=== PATIENT | male | born 1940 | race Hispanic/Latino ===

== ENCOUNTER 2022-05-06 00:12 | Inpatient (IN) | payer MEDICARE ==
[2022-05-06 00:35] LABS: Actual Bicarbonate (HCO3v) 33 mEq/L (22-28); Analyzer IN Cardio ER; Base Excess 5.8 mEq/L (-2.0 to +3.0); Calcium, Ionized (venous) 1.09 mmol/L (1.16-1.32); Chloride (VBG) 94 mmol/L (98-106); Hemoglobin (Hb) 15.8 g/dL (12.6-17.4); Potassium (VBG) 4.82 mmol/L (3.70-5.30); Sodium 132.7 mmol/L (133-146); pH (venous) 7.38 (7.32-7.43)
[2022-05-06 01:00] LABS: Mean Corpuscular HGB CONC 31.4 g/dL (32.0-36.0); Mean Corpuscular Hemoglobin 27.6 pg (27.0-31.0); RBC Distribution Width 17.3 % (11.5-14.5); Red Blood Cell (RBC) Count 5.42 mill/uL (4.70-6.10); White Blood Cell (WBC) Count 3.5 10x3/uL (4.8-10.8)
[2022-05-06 01:11] LABS: Bilirubin Negative (Negative); Blood, Urine 1+ (Negative); Clarity Clear (Clear); Glucose, Urine (Dipstick) Normal (Negative); Ketone, Urine Negative (Negative); Leukocyte 250 Leu/uL (Negative); Nitrite Negative (Negative); Protein, Urine (Dipstick) 70 mg/dL (Neg-Trace); Specific Gravity, Urine 1.016 (1.002-1.036); Squamous Epithelial 0-3 HPF (0-3); Urobilinogen 6 mg/dL (Less than 2); WBC/HPF 21-50 HPF (0-3); Yeast-Budding 4+ HPF (None Seen); pH, Urine 5.5 (5.0-9.0)
[2022-05-06 01:13] LABS: Bacteria/HPF 1+ HPF (None Seen)
[2022-05-06 01:21] LABS: Anion Gap 14 mmol/L (10-20); BUN (Urea Nitrogen) 21 mg/dL (8.4-25.7); Calc. Creatinine Clearance 0 mL/min (70-130); Carbon Dioxide 28 mmol/L (23-31); Chloride 96 mmol/L (98-107); Potassium 5.2 mmol/L (3.5-5.1); Sodium 133 mmol/L (136-145)
[2022-05-06 01:22] LABS: ALT (SGPT) 28 U/L (8-55); AST (SGOT) 36 U/L (5-34); Albumin 3.3 g/dL (3.4-4.8); Alkaline Phosphatase 143 U/L (40-110); Bilirubin, Total 1.3 mg/dL (0.2-1.2); Calcium 8.9 mg/dL (7.8-10.44); Estimated GFR 84; Globulin 4.5 g/dL (2.4-3.5); Glucose 115 mg/dL (83-110); Protein, Total 7.8 g/dL (5.8-8.1)
[2022-05-06 01:23] LABS: #Basophils 0.1 thou/uL (0.0-0.2); #Eosinphils 0.1 thou/uL (0.0-0.7); #Lymphocytes 0.8 thou/uL (1.20-3.40); #Monocytes 0.3 thou/uL (0.11-0.59); #Neutrophils 2.3 thou/uL (1.40-6.50); %Basophils 1.9 % (0.0-1.0); %Eosinophils 3.7 % (0.0-10.0); %Lymphocytes 22.1 % (21.0-51.0); %Monocytes 7.8 % (0.0-10.0); %Neutrophils 64.5 % (42.0-75.0); Anisocytosis SLIGHT = 6-15 cells (100X) (0-5/hpf); Large Platelets SLIGHT; MDiff Complete? YES; Platelet Count 113 10x3/uL (130-400); Platelet Morphology Comment Appears Decreased
[2022-05-06] MEDS ORDERED: Cefepime 2 GM VIAL ONE (01:28)
[2022-05-06 01:43] LABS: CKMB 2.8 ng/mL (0-6.6)
[2022-05-06] MEDS ORDERED: Furosemide 40 MG/4 ML VIAL ONE (02:32)
[2022-05-06 02:57] LABS: SARS-CoV-2 NAA Rapid Test Not Detected (NotDetected)
[2022-05-06] MEDS ORDERED: VANCOMYCIN 2 GRAM/500 ML BAG 2 GM in Premix Bag 1 BAG IVPB SCH (03:00)
[2022-05-06] MEDS ORDERED: Ondansetron PF 4 MG/2 ML Vial IVP PRN (03:41)
[2022-05-06] MEDS ORDERED: traZODone HCl 50 MG TAB PO PRN (04:23)
[2022-05-06] MEDS ORDERED: Melatonin 3 MG TAB PO PRN (04:23)
[2022-05-06] MEDS ORDERED: Benzonatate 100 MG CAP PO PRN (04:24)
[2022-05-06] MEDS ORDERED: Ampicillin 2 GM in Sodium Chloride 0.9% 100 ML IVPB SCH ×2 (05:00→11:00)
[2022-05-06] MEDS ORDERED: guaiFENesin ER 600 MG TAB PO SCH (05:00)
[2022-05-06] MEDS ORDERED: Ampicillin 2 GM VIAL ONE (05:05)
[2022-05-06] MEDS: Lidocaine 5% Patch TD SCH (05:15)
[2022-05-06 05:23] LABS: Troponin I 0.048 ng/mL (< 0.028)
[2022-05-06] MEDS ORDERED: Furosemide 20 MG/2 ML VIAL ONE (05:52)
[2022-05-06] MEDS: Furosemide 20 MG/2 ML VIAL SLOW IVP SCH ×2 (06:02→15:37)
[2022-05-06] MEDS ORDERED: Vancomycin HCl 1 GM in Sodium Chloride 0.9% 250 ML 300 ML IVPB SCH (09:00)
[2022-05-06 10:19] LABS: Legionella Urinary Ag Negative (Negative); Strep pneumo Urine Ag NEGATIVE (NEGATIVE)
[2022-05-06] MEDS: Cefepime 2 GM in Sodium Chloride 0.9% 100 ML IVPB SCH ×2 (10:32→17:10)
[2022-05-06 10:33] LABS: Anion Gap 14 mmol/L (10-20); BUN (Urea Nitrogen) 19 mg/dL (8.4-25.7); Calc. Creatinine Clearance 81 mL/min (70-130); Calcium 9.1 mg/dL (7.8-10.44); Carbon Dioxide 30 mmol/L (23-31); Chloride 95 mmol/L (98-107); Estimated GFR 81; Glucose 114 mg/dL (83-110); Potassium 4.5 mmol/L (3.5-5.1); Sodium 134 mmol/L (136-145)
[2022-05-06] MEDS: guaiFENesin ER 600 MG TAB PO SCH ×2 (10:34→21:28)
[2022-05-06] MEDS: Pantoprazole 40 MG VIAL IVP SCH (10:34)
[2022-05-06 10:38] LABS: Troponin I 0.052 ng/mL (< 0.028)
[2022-05-06] MEDS: Ampicillin 2 GM in Sodium Chloride 0.9% 100 ML IVPB SCH ×3 (15:37→21:28)
[2022-05-06] MEDS: Vancomycin 1.5 GRAM/300 ML BAG 1.5 GM in Premix Bag 1 BAG IVPB SCH (16:50)
[2022-05-06] MEDS ORDERED: FLU VACC QS2022-23(65YR UP)/PF 240 MCG/0.7 ML SYRINGE IM ONE (17:00)
[2022-05-06] MEDS: Transdermal Patch Removal TOP SCH (17:10)
[2022-05-07] MEDS: Ampicillin 2 GM in Sodium Chloride 0.9% 100 ML IVPB SCH ×6 (03:10→20:59)
[2022-05-07] MEDS: Cefepime 2 GM in Sodium Chloride 0.9% 100 ML IVPB SCH ×3 (03:21→16:57)
[2022-05-07] MEDS: Vancomycin 1.5 GRAM/300 ML BAG 1.5 GM in Premix Bag 1 BAG IVPB SCH (03:57)
[2022-05-07 05:58] LABS: #Basophils 0.1 thou/uL (0.0-0.2); #Eosinphils 0.1 thou/uL (0.0-0.7); #Lymphocytes 0.6 thou/uL (1.20-3.40); #Monocytes 0.3 thou/uL (0.11-0.59); #Neutrophils 2.4 thou/uL (1.40-6.50); %Basophils 1.8 % (0.0-1.0); %Eosinophils 1.6 % (0.0-10.0); %Lymphocytes 17.7 % (21.0-51.0); %Monocytes 8.4 % (0.0-10.0); %Neutrophils 70.7 % (42.0-75.0); Hemoglobin 14.9 g/dL (14.0-18.0); Mean Corpuscular HGB CONC 32.5 g/dL (32.0-36.0); Mean Corpuscular Hemoglobin 28.4 pg (27.0-31.0); Mean Corpuscular Volume 87.5 fl (78.0-98.0); Mean Platelet Volume 9.7 fL (7.4-10.4); Platelet Count 114 10x3/uL (130-400); RBC Distribution Width 16.9 % (11.5-14.5); Red Blood Cell (RBC) Count 5.26 mill/uL (4.70-6.10); White Blood Cell (WBC) Count 3.3 10x3/uL (4.8-10.8)
[2022-05-07 06:11] LABS: Hemoglobin A1c 6.8 % (4.0-6.0)
[2022-05-07 06:28] LABS: ALT (SGPT) 36 U/L (8-55); AST (SGOT) 42 U/L (5-34); Alkaline Phosphatase 136 U/L (40-110); Anion Gap 14 mmol/L (10-20); BUN (Urea Nitrogen) 19 mg/dL (8.4-25.7); Bilirubin, Total 1.7 mg/dL (0.2-1.2); CRP (Inflammatory) 1.42 mg/dL (= or < 0.5); Calc. Creatinine Clearance 91 mL/min (70-130); Calcium 9.2 mg/dL (7.8-10.44); Carbon Dioxide 29 mmol/L (23-31); Chloride 95 mmol/L (98-107); Estimated GFR 88; Globulin 4.5 g/dL (2.4-3.5); Glucose 108 mg/dL (83-110); Magnesium 1.9 mg/dL (1.6-2.6); Potassium 4.3 mmol/L (3.5-5.1); Protein, Total 7.5 g/dL (5.8-8.1); Sodium 134 mmol/L (136-145)
[2022-05-07] MEDS: Furosemide 20 MG/2 ML VIAL SLOW IVP SCH ×2 (06:42→14:40)
[2022-05-07] MEDS: Lidocaine 5% Patch TD SCH (06:42)
[2022-05-07] MEDS: guaiFENesin ER 600 MG TAB PO SCH ×2 (09:57→20:32)
[2022-05-07] MEDS: Pantoprazole 40 MG VIAL IVP SCH (10:03)
[2022-05-07 14:26] LABS: Vancomycin, Trough 29.4 ug/mL
[2022-05-07] MEDS ORDERED: VANCOMYCIN IVPB SCH (14:45)
[2022-05-07] MEDS: Transdermal Patch Removal TOP SCH (16:57)
[2022-05-07] MEDS: Acetaminophen 325 MG TAB PO PRN (16:59)
[2022-05-08] MEDS: Ampicillin 2 GM in Sodium Chloride 0.9% 100 ML IVPB SCH ×6 (01:10→20:55)
[2022-05-08] MEDS: Cefepime 2 GM in Sodium Chloride 0.9% 100 ML IVPB SCH ×3 (01:10→18:17)
[2022-05-08 02:16] LABS: #Basophils 0.1 thou/uL (0.0-0.2); #Eosinphils 0.1 thou/uL (0.0-0.7); #Lymphocytes 0.7 thou/uL (1.20-3.40); #Monocytes 0.4 thou/uL (0.11-0.59); #Neutrophils 2.5 thou/uL (1.40-6.50); %Eosinophils 2.3 % (0.0-10.0); %Lymphocytes 17.9 % (21.0-51.0); %Neutrophils 67.9 % (42.0-75.0); Hemoglobin 14.1 g/dL (14.0-18.0); Mean Corpuscular HGB CONC 31.6 g/dL (32.0-36.0); Mean Corpuscular Hemoglobin 27.4 pg (27.0-31.0); Mean Corpuscular Volume 86.8 fl (78.0-98.0); Mean Platelet Volume 11.2 fL (7.4-10.4); Platelet Count 108 10x3/uL (130-400); RBC Distribution Width 17.3 % (11.5-14.5); Red Blood Cell (RBC) Count 5.14 mill/uL (4.70-6.10); White Blood Cell (WBC) Count 3.7 10x3/uL (4.8-10.8)
[2022-05-08 02:29] LABS: Vancomycin, Random 21.6 ug/mL (See Comment)
[2022-05-08] MEDS: Furosemide 20 MG/2 ML VIAL SLOW IVP SCH ×2 (05:05→13:57)
[2022-05-08] MEDS: Lidocaine 5% Patch TD SCH (05:20)
[2022-05-08 06:55] LABS: Chloride 93 mmol/L (98-107); Potassium 4.1 mmol/L (3.5-5.1); Sodium 134 mmol/L (136-145)
[2022-05-08 06:56] LABS: Glucose 113 mg/dL (83-110)
[2022-05-08 06:58] LABS: Anion Gap 10 mmol/L (10-20); Carbon Dioxide 35 mmol/L (23-31)
[2022-05-08 07:00] LABS: BUN (Urea Nitrogen) 20 mg/dL (8.4-25.7); Calc. Creatinine Clearance 76 mL/min (70-130); Estimated GFR 79
[2022-05-08] MEDS: guaiFENesin ER 600 MG TAB PO SCH ×2 (07:36→20:42)
[2022-05-08] MEDS: Pantoprazole 40 MG VIAL IVP SCH (08:58)
[2022-05-08 14:18] LABS: Vancomycin, Random 16.5 ug/mL (See Comment)
[2022-05-08] MEDS ORDERED: Vancomycin 1.5 GRAM/300 ML BAG 1.5 GM in Premix Bag 1 BAG IVPB SCH (16:00)
[2022-05-08] MEDS: Transdermal Patch Removal TOP SCH (18:21)
[2022-05-08] MEDS ORDERED: clonazePAM 0.5 MG TAB PO PRN (19:55)
[2022-05-08] MEDS: Melatonin 3 MG TAB PO PRN (20:42)
[2022-05-09] MEDS: Cefepime 2 GM in Sodium Chloride 0.9% 100 ML IVPB SCH ×3 (01:05→17:22)
[2022-05-09] MEDS: Ampicillin 2 GM in Sodium Chloride 0.9% 100 ML IVPB SCH ×6 (01:05→20:58)
[2022-05-09 04:36] LABS: #Lymphocytes 0.7 thou/uL (1.20-3.40); #Monocytes 0.2 thou/uL (0.11-0.59); %Eosinophils 1.6 % (0.0-10.0); %Monocytes 8.2 % (0.0-10.0); %Neutrophils 67.2 % (42.0-75.0); Hemoglobin 14.1 g/dL (14.0-18.0); Mean Corpuscular HGB CONC 31.2 g/dL (32.0-36.0); Mean Corpuscular Hemoglobin 27.3 pg (27.0-31.0); Mean Corpuscular Volume 87.5 fl (78.0-98.0); Mean Platelet Volume 11.1 fL (7.4-10.4); Platelet Count 104 10x3/uL (130-400); RBC Distribution Width 17.5 % (11.5-14.5); Red Blood Cell (RBC) Count 5.16 mill/uL (4.70-6.10); White Blood Cell (WBC) Count 2.9 10x3/uL (4.8-10.8)
[2022-05-09] MEDS: Furosemide 20 MG/2 ML VIAL SLOW IVP SCH (05:41)
[2022-05-09] MEDS: Lidocaine 5% Patch TD SCH (05:41)
[2022-05-09 07:20] LABS: Chloride 93 mmol/L (98-107); Potassium 3.9 mmol/L (3.5-5.1); Sodium 133 mmol/L (136-145)
[2022-05-09 07:21] LABS: Glucose 129 mg/dL (83-110)
[2022-05-09 07:23] LABS: Carbon Dioxide 31 mmol/L (23-31)
[2022-05-09 07:24] LABS: Anion Gap 13 mmol/L (10-20)
[2022-05-09 07:25] LABS: Calc. Creatinine Clearance 81 mL/min (70-130); Estimated GFR 85
[2022-05-09 07:26] LABS: BUN (Urea Nitrogen) 21 mg/dL (8.4-25.7)
[2022-05-09] MEDS ORDERED: Furosemide 20 MG/2 ML VIAL SLOW IVP SCH (08:53)
[2022-05-09] MEDS ORDERED: Furosemide 40 MG/4 ML VIAL SLOW IVP SCH ×3 (09:00→14:00)
[2022-05-09] MEDS: Pantoprazole 40 MG VIAL IVP SCH (09:20)
[2022-05-09] MEDS: guaiFENesin ER 600 MG TAB PO SCH ×2 (09:20→20:58)
[2022-05-09] MEDS: DOPamine 400 MG/D5W 250 ML 250 ML IVPB SCH (11:35)
[2022-05-09] MEDS ORDERED: Sodium Chloride 0.65% Nasal 44 ML BOT EA NARE PRN (17:06)
[2022-05-09] MEDS: Transdermal Patch Removal TOP SCH (17:54)
[2022-05-10] MEDS: DOPamine 400 MG/D5W 250 ML 250 ML IVPB SCH ×2 (01:08→21:08)
[2022-05-10] MEDS: Cefepime 2 GM in Sodium Chloride 0.9% 100 ML IVPB SCH ×3 (01:08→17:21)
[2022-05-10] MEDS: Ampicillin 2 GM in Sodium Chloride 0.9% 100 ML IVPB SCH ×6 (01:08→21:08)
[2022-05-10] MEDS: Lidocaine 5% Patch TD SCH (06:27)
[2022-05-10 07:23] LABS: Anion Gap 14 mmol/L (10-20); BUN (Urea Nitrogen) 22 mg/dL (8.4-25.7); Calc. Creatinine Clearance 83 mL/min (70-130); Carbon Dioxide 31 mmol/L (23-31); Chloride 93 mmol/L (98-107); Estimated GFR 86; Glucose 145 mg/dL (83-110); Sodium 133 mmol/L (136-145)
[2022-05-10] MEDS: Pantoprazole 40 MG VIAL IVP SCH (09:09)
[2022-05-10] MEDS ORDERED: Furosemide 40 MG/4 ML VIAL SLOW IVP SCH (09:30)
[2022-05-10] MEDS: guaiFENesin ER 600 MG TAB PO SCH ×2 (09:53→21:09)
[2022-05-10] MEDS: Furosemide 40 MG/4 ML VIAL SLOW IVP SCH (16:36)
[2022-05-10] MEDS: Transdermal Patch Removal TOP SCH (17:29)
[2022-05-10] MEDS: Melatonin 3 MG TAB PO PRN (21:08)
[2022-05-10] MEDS: Acetaminophen 325 MG TAB PO PRN (22:19)
[2022-05-11] MEDS: Cefepime 2 GM in Sodium Chloride 0.9% 100 ML IVPB SCH ×3 (01:40→17:12)
[2022-05-11] MEDS: Ampicillin 2 GM in Sodium Chloride 0.9% 100 ML IVPB SCH ×6 (01:40→21:56)
[2022-05-11 04:35] LABS: #Basophils 0.1 thou/uL (0.0-0.2); #Eosinphils 0.1 thou/uL (0.0-0.7); #Lymphocytes 0.8 thou/uL (1.20-3.40); #Monocytes 0.4 thou/uL (0.11-0.59); #Neutrophils 1.7 thou/uL (1.40-6.50); %Basophils 1.8 % (0.0-1.0); %Eosinophils 3.4 % (0.0-10.0); %Monocytes 12.6 % (0.0-10.0); %Neutrophils 55.3 % (42.0-75.0); Hemoglobin 14.3 g/dL (14.0-18.0); Mean Corpuscular Hemoglobin 26.9 pg (27.0-31.0); Mean Corpuscular Volume 86.8 fl (78.0-98.0); Mean Platelet Volume 11.8 fL (7.4-10.4); Platelet Count 99 10x3/uL (130-400); RBC Distribution Width 17.9 % (11.5-14.5); Red Blood Cell (RBC) Count 5.31 mill/uL (4.70-6.10); White Blood Cell (WBC) Count 3.1 10x3/uL (4.8-10.8)
[2022-05-11] MEDS: Furosemide 40 MG/4 ML VIAL SLOW IVP SCH (05:44)
[2022-05-11] MEDS: Lidocaine 5% Patch TD SCH (05:44)
[2022-05-11 08:42] LABS: Anion Gap 17 mmol/L (10-20); BUN (Urea Nitrogen) 20 mg/dL (8.4-25.7); Calc. Creatinine Clearance 84 mL/min (70-130); Calcium 9.1 mg/dL (7.8-10.44); Carbon Dioxide 28 mmol/L (23-31); Chloride 91 mmol/L (98-107); Estimated GFR 87; Glucose 116 mg/dL (83-110); Magnesium 1.7 mg/dL (1.6-2.6); Potassium 3.6 mmol/L (3.5-5.1); Sodium 132 mmol/L (136-145)
[2022-05-11] MEDS: Pantoprazole 40 MG VIAL IVP SCH (09:36)
[2022-05-11] MEDS: guaiFENesin ER 600 MG TAB PO SCH ×2 (10:08→21:13)
[2022-05-11] MEDS: Bumetanide 1 MG/4 ML VIAL IVP SCH (14:19)
[2022-05-11] MEDS: Transdermal Patch Removal TOP SCH (17:13)
[2022-05-11] MEDS: Melatonin 3 MG TAB PO PRN (21:12)
[2022-05-11] MEDS: DOPamine 400 MG/D5W 250 ML 250 ML IVPB SCH (21:55)
[2022-05-12] MEDS: Ampicillin 2 GM in Sodium Chloride 0.9% 100 ML IVPB SCH ×6 (01:38→20:58)
[2022-05-12] MEDS: Cefepime 2 GM in Sodium Chloride 0.9% 100 ML IVPB SCH ×3 (01:38→17:16)
[2022-05-12 04:18] LABS: #Eosinphils 0.1 thou/uL (0.0-0.7); #Lymphocytes 0.8 thou/uL (1.20-3.40); #Monocytes 0.4 thou/uL (0.11-0.59); #Neutrophils 1.5 thou/uL (1.40-6.50); %Basophils 1.3 % (0.0-1.0); %Eosinophils 4.9 % (0.0-10.0); %Lymphocytes 26.6 % (21.0-51.0); %Monocytes 13.3 % (0.0-10.0); %Neutrophils 53.9 % (42.0-75.0); Mean Corpuscular HGB CONC 30.3 g/dL (32.0-36.0); Mean Corpuscular Hemoglobin 26.5 pg (27.0-31.0); Mean Corpuscular Volume 87.5 fl (78.0-98.0); Mean Platelet Volume 11.6 fL (7.4-10.4); Platelet Count 84 10x3/uL (130-400); RBC Distribution Width 17.4 % (11.5-14.5); Red Blood Cell (RBC) Count 5.29 mill/uL (4.70-6.10); White Blood Cell (WBC) Count 2.8 10x3/uL (4.8-10.8)
[2022-05-12 04:39] LABS: BUN (Urea Nitrogen) 19 mg/dL (8.4-25.7); Calc. Creatinine Clearance 82 mL/min (70-130); Calcium 9.2 mg/dL (7.8-10.44); Estimated GFR 86; Glucose 131 mg/dL (83-110); Magnesium 1.7 mg/dL (1.6-2.6)
[2022-05-12 04:48] LABS: Anion Gap 12 mmol/L (10-20); Carbon Dioxide 39 mmol/L (23-31); Chloride 86 mmol/L (98-107); Potassium 3.3 mmol/L (3.5-5.1); Sodium 134 mmol/L (136-145)
[2022-05-12] MEDS: Bumetanide 1 MG/4 ML VIAL IVP SCH ×2 (05:49→14:41)
[2022-05-12] MEDS: Lidocaine 5% Patch TD SCH (06:01)
[2022-05-12] MEDS: guaiFENesin ER 600 MG TAB PO SCH ×2 (10:02→20:44)
[2022-05-12] MEDS: Pantoprazole 40 MG VIAL IVP SCH (10:03)
[2022-05-12] MEDS ORDERED: Magnesium 2 GM/50 ML(in water) 2 GM in Premix Bag 1 BAG IVPB SCH (13:30)
[2022-05-12] MEDS: Potassium Chloride 20 MEQ TAB PO SCH ×2 (14:40→17:15)
[2022-05-12] MEDS: Transdermal Patch Removal TOP SCH (21:09)
[2022-05-13 05:37] LABS: #Eosinphils 0.2 thou/uL (0.0-0.7); #Lymphocytes 0.9 thou/uL (1.20-3.40); #Monocytes 0.4 thou/uL (0.11-0.59); #Neutrophils 1.9 thou/uL (1.40-6.50); %Basophils 0.9 % (0.0-1.0); %Eosinophils 6.3 % (0.0-10.0); %Lymphocytes 26.6 % (21.0-51.0); %Monocytes 10.7 % (0.0-10.0); %Neutrophils 55.6 % (42.0-75.0); Hemoglobin 14.8 g/dL (14.0-18.0); Mean Corpuscular HGB CONC 30.4 g/dL (32.0-36.0); Mean Corpuscular Volume 88.7 fl (78.0-98.0); Mean Platelet Volume 10.9 fL (7.4-10.4); Platelet Count 95 10x3/uL (130-400); RBC Distribution Width 17.5 % (11.5-14.5); Red Blood Cell (RBC) Count 5.49 mill/uL (4.70-6.10); White Blood Cell (WBC) Count 3.4 10x3/uL (4.8-10.8)
[2022-05-13 05:58] LABS: BUN (Urea Nitrogen) 20 mg/dL (8.4-25.7); Calc. Creatinine Clearance 79 mL/min (70-130); Calcium 9.5 mg/dL (7.8-10.44); Estimated GFR 87; Glucose 112 mg/dL (83-110); Magnesium 2.1 mg/dL (1.6-2.6)
[2022-05-13 06:09] LABS: Anion Gap 12 mmol/L (10-20); Carbon Dioxide 42 mmol/L (23-31); Chloride 84 mmol/L (98-107); Potassium 3.7 mmol/L (3.5-5.1); Sodium 134 mmol/L (136-145)
[2022-05-13] MEDS: Lidocaine 5% Patch TD SCH (06:26)
[2022-05-13] MEDS: Bumetanide 1 MG/4 ML VIAL IVP SCH ×2 (06:26→13:49)
[2022-05-13] MEDS: DOPamine 400 MG/D5W 250 ML 250 ML IVPB SCH ×2 (06:26→11:51)
[2022-05-13] MEDS: Artificial Tear Sol 15 ML BOT EA EYE PRN ×2 (08:51→22:21)
[2022-05-13] MEDS: Pantoprazole 40 MG VIAL IVP SCH (08:54)
[2022-05-13] MEDS: guaiFENesin ER 600 MG TAB PO SCH ×2 (08:54→22:14)
[2022-05-13] MEDS ORDERED: Apixaban 5 MG TAB PO SCH (10:15)
[2022-05-13] MEDS ORDERED: Potassium Chloride 20 MEQ TAB PO SCH (10:15)
[2022-05-13] MEDS: Transdermal Patch Removal TOP SCH (17:27)
[2022-05-13] MEDS: Apixaban 5 MG TAB PO SCH (22:14)
[2022-05-13] MEDS ORDERED: Melatonin 3 MG TAB PO PRN (23:48)
[2022-05-14] MEDS: Melatonin 3 MG TAB PO PRN ×2 (00:04→21:08)
[2022-05-14] MEDS: Artificial Tear Sol 15 ML BOT EA EYE PRN ×2 (04:04→21:27)
[2022-05-14 04:51] LABS: #Basophils 0.1 thou/uL (0.0-0.2); #Eosinphils 0.2 thou/uL (0.0-0.7); #Lymphocytes 0.9 thou/uL (1.20-3.40); #Monocytes 0.4 thou/uL (0.11-0.59); #Neutrophils 2.2 thou/uL (1.40-6.50); %Basophils 1.5 % (0.0-1.0); %Eosinophils 5.5 % (0.0-10.0); %Monocytes 10.8 % (0.0-10.0); %Neutrophils 59.2 % (42.0-75.0); Hemoglobin 15.1 g/dL (14.0-18.0); Mean Corpuscular HGB CONC 31.3 g/dL (32.0-36.0); Mean Corpuscular Hemoglobin 27.3 pg (27.0-31.0); Mean Corpuscular Volume 87.2 fl (78.0-98.0); Mean Platelet Volume 6.8 fL (7.4-10.4); Platelet Count 92 10x3/uL (130-400); RBC Distribution Width 17.7 % (11.5-14.5); Red Blood Cell (RBC) Count 5.53 mill/uL (4.70-6.10); White Blood Cell (WBC) Count 3.7 10x3/uL (4.8-10.8)
[2022-05-14 05:14] LABS: BUN (Urea Nitrogen) 20 mg/dL (8.4-25.7); Calc. Creatinine Clearance 64 mL/min (70-130); Calcium 9.7 mg/dL (7.8-10.44); Estimated GFR 80; Glucose 109 mg/dL (83-110); Magnesium 1.9 mg/dL (1.6-2.6)
[2022-05-14 05:24] LABS: Anion Gap 17 mmol/L (10-20); Carbon Dioxide 34 mmol/L (23-31); Chloride 84 mmol/L (98-107); Potassium 3.6 mmol/L (3.5-5.1); Sodium 131 mmol/L (136-145)
[2022-05-14] MEDS: Lidocaine 5% Patch TD SCH (05:56)
[2022-05-14] MEDS: Bumetanide 1 MG/4 ML VIAL IVP SCH ×2 (05:56→14:33)
[2022-05-14] MEDS ORDERED: Potassium Chloride 20 MEQ TAB PO SCH (09:00)
[2022-05-14] MEDS ORDERED: Magnesium 2 GM/50 ML(in water) 2 GM in Premix Bag 1 BAG IVPB SCH (09:00)
[2022-05-14] MEDS ORDERED: Furosemide 40 MG TAB PO SCH ×2 (09:00)
[2022-05-14] MEDS: Apixaban 5 MG TAB PO SCH ×2 (09:32→21:08)
[2022-05-14] MEDS: guaiFENesin ER 600 MG TAB PO SCH ×2 (09:33→21:08)
[2022-05-14] MEDS: Pantoprazole 40 MG VIAL IVP SCH (09:33)
[2022-05-14] MEDS: Tobramycin/dex OPTH 2.5 ML BOT EA EYE SCH ×2 (14:29→21:00)
[2022-05-14 15:20] VITALS: BMI 25.3
[2022-05-14] MEDS: Transdermal Patch Removal TOP SCH (21:00)
[2022-05-15] MEDS: Tobramycin/dex OPTH 2.5 ML BOT EA EYE SCH ×6 (02:02→17:48)
[2022-05-15 05:21] LABS: #Basophils 0.1 thou/uL (0.0-0.2); #Eosinphils 0.4 thou/uL (0.0-0.7); #Monocytes 0.4 thou/uL (0.11-0.59); #Neutrophils 1.8 thou/uL (1.40-6.50); %Basophils 1.3 % (0.0-1.0); %Eosinophils 9.9 % (0.0-10.0); %Lymphocytes 27.6 % (21.0-51.0); %Monocytes 11.9 % (0.0-10.0); %Neutrophils 49.2 % (42.0-75.0); Hemoglobin 14.8 g/dL (14.0-18.0); Mean Corpuscular HGB CONC 32.2 g/dL (32.0-36.0); Mean Corpuscular Hemoglobin 27.7 pg (27.0-31.0); Mean Platelet Volume 11.1 fL (7.4-10.4); Platelet Count 108 10x3/uL (130-400); RBC Distribution Width 17.6 % (11.5-14.5); Red Blood Cell (RBC) Count 5.35 mill/uL (4.70-6.10); White Blood Cell (WBC) Count 3.7 10x3/uL (4.8-10.8)
[2022-05-15] MEDS: Bumetanide 1 MG/4 ML VIAL IVP SCH (05:35)
[2022-05-15] MEDS: Lidocaine 5% Patch TD SCH (05:35)
[2022-05-15 05:37] LABS: Anion Gap 11 mmol/L (10-20); BUN (Urea Nitrogen) 23 mg/dL (8.4-25.7); Calc. Creatinine Clearance 61 mL/min (70-130); Calcium 9.6 mg/dL (7.8-10.44); Carbon Dioxide 37 mmol/L (23-31); Chloride 85 mmol/L (98-107); Estimated GFR 75; Glucose 99 mg/dL (83-110); Magnesium 2.2 mg/dL (1.6-2.6); Potassium 3.8 mmol/L (3.5-5.1); Sodium 129 mmol/L (136-145)
[2022-05-15] MEDS ORDERED: Furosemide 40 MG TAB PO SCH (07:30)
[2022-05-15] MEDS: Apixaban 5 MG TAB PO SCH (08:34)
[2022-05-15] MEDS: guaiFENesin ER 600 MG TAB PO SCH (08:34)
[2022-05-15] MEDS: Pantoprazole 40 MG VIAL IVP SCH (08:35)
[2022-05-15] MEDS ORDERED: Potassium Chloride 20 MEQ TAB PO SCH (10:45)
[2022-05-15 16:38] VITALS: BP 96/50; TEMP 97.8
[2022-05-15] MEDS: Transdermal Patch Removal TOP SCH (18:48)
== END 2022-05-15 19:00 | DRG 177 ==
LOC: ERS 00:12 → SUATTDRO 00:12 → ERHOLD 03:06 → IMCU/EMU 07:52 → 2NO 05-12 18:01
PROVIDERS: ADMIT Family Medicine; ATTEND Internal Medicine
PROC: 0T2BX0Z Change Drainage Device in Bladder, External Approach (ICD-10-PCS; principal; 2022-05-06)
PROC: 0CJS8ZZ Inspection of Larynx, Via Natural or Artificial Opening Endoscopic (ICD-10-PCS; 2022-05-09)
PROC: 5A09457 Assistance with Respiratory Ventilation, 24-96 Consecutive Hours, Continuous Positive Airway Pressure (ICD-10-PCS; 2022-05-09)
DX: J69.0 Pneumonitis due to inhalation of food and vomit (principal); G93.41 Metabolic encephalopathy; I50.33 Acute on chronic diastolic (congestive) heart failure; J96.21 Acute and chronic respiratory failure with hypoxia; T83.518A Infection and inflammatory reaction due to other urinary catheter, initial encounter; I48.20 Chronic atrial fibrillation, unspecified; R78.81 Bacteremia; N39.0 Urinary tract infection, site not specified; I31.39 Other pericardial effusion (noninflammatory); Z51.5 Encounter for palliative care; N32.0 Bladder-neck obstruction; E87.5 Hyperkalemia; D69.6 Thrombocytopenia, unspecified; B95.2 Enterococcus as the cause of diseases classified elsewhere; I87.8 Other specified disorders of veins; R29.6 Repeated falls; R00.1 Bradycardia, unspecified; Y84.6 Urinary catheterization as the cause of abnormal reaction of the patient, or of later complication, without mention of misadventure at the time of the procedure; R13.10 Dysphagia, unspecified; I35.0 Nonrheumatic aortic (valve) stenosis; Z90.49 Acquired absence of other specified parts of digestive tract; Z79.899 Other long term (current) drug therapy; Z79.4 Long term (current) use of insulin; Z79.01 Long term (current) use of anticoagulants; Z98.890 Other specified postprocedural states; Z91.199 Patient's noncompliance with other medical treatment and regimen due to unspecified reason
CPT/HCPCS: 36415; 36416; 71045; 80048; 80053; 80202; 81003; 81015; 82553; 82805; 83036; 83605; 83735; 83880; 84145; 84443; 84484; 85025; 85652; 86140; 87040; 87086; 87449; 87811; 87899; 93005; 93306; 94660; 94760; 96365; 96367; 96375; 97139; C9113; J0290; J0692; J1265; J1650; J1940; J2405; J3370; J3475; J3490

== ENCOUNTER 2022-06-20 11:14 | Outpatient (CLI) | payer MEDICARE, OTHER ==
[~2022-06-20 11:14] MED LIST: Iopamidol 370 76% 100 ML VIAL ONE
== END 2022-06-20 11:15 | disposition home or self-care (01) ==
LOC: CT 11:14
PROVIDERS: ATTEND Family Medicine
DX: R10.11 Right upper quadrant pain (principal); K76.0 Fatty (change of) liver, not elsewhere classified; K56.609 Unspecified intestinal obstruction, unspecified as to partial versus complete obstruction; K52.89 Other specified noninfective gastroenteritis and colitis; N32.89 Other specified disorders of bladder
CPT/HCPCS: 36415; 74178; 80053; 85025; Q9967

== ENCOUNTER 2022-06-20 12:58 | Inpatient (IN) | payer MEDICARE ==
[~2022-06-20 12:58] MED LIST changes: -Iopamidol 370 76% 100 ML VIAL ONE; +MD-Gastroview 120 ML BOT ONE
[2022-06-20 14:55] LABS: #Lymphocytes 0.9 thou/uL (1.20-3.40); #Monocytes 0.6 thou/uL (0.11-0.59); %Basophils 0.4 % (0.0-1.0); %Eosinophils 0.5 % (0.0-10.0); %Lymphocytes 13.5 % (21.0-51.0); %Monocytes 8.7 % (0.0-10.0); %Neutrophils 76.9 % (42.0-75.0); Mean Corpuscular HGB CONC 32.4 g/dL (32.0-36.0); Mean Corpuscular Volume 86.5 fl (78.0-98.0); Mean Platelet Volume 10.9 fL (7.4-10.4); Platelet Count 114 10x3/uL (130-400); RBC Distribution Width 16.9 % (11.5-14.5); Red Blood Cell (RBC) Count 5.35 mill/uL (4.70-6.10); White Blood Cell (WBC) Count 6.4 10x3/uL (4.8-10.8)
[2022-06-20 15:17] LABS: ALT (SGPT) 22 U/L (8-55); AST (SGOT) 28 U/L (5-34); Albumin 4.1 g/dL (3.4-4.8); Alkaline Phosphatase 119 U/L (40-110); Anion Gap 16 mmol/L (10-20); BUN (Urea Nitrogen) 22 mg/dL (8.4-25.7); Bilirubin, Total 1.3 mg/dL (0.2-1.2); Calc. Creatinine Clearance 0 mL/min (70-130); Calcium 10.3 mg/dL (7.8-10.44); Carbon Dioxide 26 mmol/L (23-31); Chloride 90 mmol/L (98-107); Estimated GFR 76; Globulin 4.6 g/dL (2.4-3.5); Glucose 131 mg/dL (83-110); Potassium 4.1 mmol/L (3.5-5.1); Protein, Total 8.7 g/dL (5.8-8.1); Sodium 128 mmol/L (136-145)
[2022-06-20] MEDS ORDERED: Ondansetron PF 4 MG/2 ML Vial ONE ×2 (15:26→15:27)
[2022-06-20] MEDS ORDERED: Morphine 4 MG/ML VIAL ONE (15:27)
[2022-06-20 16:13] LABS: Lipase 10 U/L (8-78)
[2022-06-20] MEDS ORDERED: Sodium Chloride 0.9% 1,000 ML IV SCH ×2 (17:30→18:30)
[2022-06-20] MEDS ORDERED: Piperacillin/Tazobactam 3.375 GM in Sodium Chloride 0.9% 100 ML IVPB SCH (19:15)
[2022-06-20 19:59] VITALS: BMI 25.7
[2022-06-20] MEDS ORDERED: Morphine 2 MG/ML VIAL SLOW IVP SCH (20:00)
[2022-06-20] MEDS: Famotidine/PF 20 mg/2ml Vial SLOW IVP SCH (20:08)
[2022-06-20] MEDS: Ondansetron PF 4 MG/2 ML Vial IVP PRN (20:08)
[2022-06-20] MEDS ORDERED: Pantoprazole 40 MG VIAL IVP SCH (22:45)
[2022-06-20] MEDS: Piperacillin/Tazobactam 3.375 GM in Sodium Chloride 0.9% 100 ML IVPB SCH (23:05)
[2022-06-20] MEDS: Heparin 5,000 UNITS/ML VIAL SC SCH (23:06)
[2022-06-21] MEDS ORDERED: Morphine 2 MG/ML VIAL SLOW IVP SCH (04:15)
[2022-06-21] MEDS: Ondansetron PF 4 MG/2 ML Vial IVP PRN (04:22)
[2022-06-21] MEDS: Piperacillin/Tazobactam 3.375 GM in Sodium Chloride 0.9% 100 ML IVPB SCH (05:59)
[2022-06-21 06:57] LABS: #Lymphocytes 0.5 thou/uL (1.20-3.40); #Monocytes 0.6 thou/uL (0.11-0.59); #Neutrophils 2.8 thou/uL (1.40-6.50); %Basophils 0.7 % (0.0-1.0); %Eosinophils 0.8 % (0.0-10.0); %Lymphocytes 13.3 % (21.0-51.0); %Monocytes 13.8 % (0.0-10.0); %Neutrophils 71.4 % (42.0-75.0); Hemoglobin 14.1 g/dL (14.0-18.0); Mean Corpuscular HGB CONC 30.2 g/dL (32.0-36.0); Mean Corpuscular Hemoglobin 26.5 pg (27.0-31.0); Mean Corpuscular Volume 87.6 fl (78.0-98.0); Mean Platelet Volume 10.5 fL (7.4-10.4); Platelet Count 112 10x3/uL (130-400); RBC Distribution Width 16.8 % (11.5-14.5); Red Blood Cell (RBC) Count 5.32 mill/uL (4.70-6.10)
[2022-06-21 07:11] LABS: Lactic Acid 0.9 mmol/L (0.5-2.2)
[2022-06-21 07:17] LABS: ALT (SGPT) 24 U/L (8-55); AST (SGOT) 26 U/L (5-34); Albumin 3.4 g/dL (3.4-4.8); Alkaline Phosphatase 94 U/L (40-110); Anion Gap 14 mmol/L (10-20); BUN (Urea Nitrogen) 27 mg/dL (8.4-25.7); Bilirubin, Total 1.4 mg/dL (0.2-1.2); Calc. Creatinine Clearance 46 mL/min (70-130); Calcium 9.6 mg/dL (7.8-10.44); Carbon Dioxide 29 mmol/L (23-31); Chloride 94 mmol/L (98-107); Estimated GFR 53; Globulin 3.9 g/dL (2.4-3.5); Glucose 119 mg/dL (83-110); Magnesium 2.2 mg/dL (1.6-2.6); Phosphorus 5.5 mg/dL (2.3-4.7); Protein, Total 7.3 g/dL (5.8-8.1); Sodium 133 mmol/L (136-145)
[2022-06-21] MEDS ORDERED: Sodium Chloride 0.9% 500 ML IV SCH (08:00)
[2022-06-21] MEDS: Famotidine/PF 20 mg/2ml Vial SLOW IVP SCH ×2 (08:59→20:57)
[2022-06-21] MEDS: Heparin 5,000 UNITS/ML VIAL SC SCH ×3 (08:59→20:55)
[2022-06-21] MEDS: Pantoprazole 40 MG VIAL IVP SCH ×2 (09:00→20:55)
[2022-06-21] MEDS ORDERED: Sodium Chloride 0.9% 1,000 ML IV SCH (09:00)
[2022-06-21 13:43] LABS: Bilirubin Negative (Negative); Blood, Urine 3+ (Negative); Clarity Turbid (Clear); Glucose, Urine (Dipstick) Normal (Negative); Ketone, Urine Negative (Negative); Leukocyte 25 Leu/uL (Negative); Nitrite Negative (Negative); Protein, Urine (Dipstick) 70 mg/dL (Neg-Trace); Specific Gravity, Urine 1.037 (1.002-1.036); Squamous Epithelial 0-3 HPF (0-3); Urobilinogen Normal mg/dL (Less than 2); Yeast-Budding 2+ HPF (None Seen)
[2022-06-21 13:48] LABS: Bacteria/HPF 1+ HPF (None Seen)
[2022-06-21 15:21] LABS: Anion Gap 13 mmol/L (10-20); BUN (Urea Nitrogen) 29 mg/dL (8.4-25.7); Calc. Creatinine Clearance 46 mL/min (70-130); Carbon Dioxide 28 mmol/L (23-31); Chloride 98 mmol/L (98-107); Estimated GFR 53; Glucose 94 mg/dL (83-110); Potassium 3.9 mmol/L (3.5-5.1); Sodium 135 mmol/L (136-145)
[2022-06-21] MEDS: Acetaminophen 500 MG TAB PO SCH ×2 (17:17→21:06)
[2022-06-21] MEDS ORDERED: Lidocaine 4% Patch TD SCH (22:15)
[2022-06-22] MEDS: Acetaminophen 500 MG TAB PO SCH ×4 (04:10→20:56)
[2022-06-22] MEDS: Famotidine/PF 20 mg/2ml Vial SLOW IVP SCH ×2 (09:54→20:56)
[2022-06-22] MEDS: Pantoprazole 40 MG VIAL IVP SCH ×2 (09:55→20:56)
[2022-06-22] MEDS ORDERED: Transdermal Patch Removal TOP SCH (10:15)
[2022-06-22] MEDS: Heparin 5,000 UNITS/ML VIAL SC SCH ×3 (12:46→20:56)
[2022-06-22] MEDS ORDERED: Sodium Chloride 0.65% Nasal 44 ML BOT EA NARE PRN (15:19)
[2022-06-22] MEDS ORDERED: Artificial Tear Sol 15 ML BOT EA EYE PRN (15:19)
[2022-06-22] MEDS ORDERED: Lidocaine 4% Patch TD SCH (22:00)
[2022-06-22] MEDS ORDERED: Cepastat Lozenges 1 LOZ PO PRN (23:44)
[2022-06-22] MEDS ORDERED: Phenol 118 ML BOT PO PRN (23:51)
[2022-06-23] MEDS: Acetaminophen 500 MG TAB PO SCH ×3 (02:37→16:20)
[2022-06-23 08:00] LABS: Anion Gap 10 mmol/L (10-20); BUN (Urea Nitrogen) 22 mg/dL (8.4-25.7); Calc. Creatinine Clearance 52 mL/min (70-130); Calcium 8.8 mg/dL (7.8-10.44); Carbon Dioxide 29 mmol/L (23-31); Chloride 98 mmol/L (98-107); Estimated GFR 60; Glucose 195 mg/dL (83-110); Potassium 3.6 mmol/L (3.5-5.1); Sodium 133 mmol/L (136-145)
[2022-06-23 08:02] LABS: Hemoglobin 13.4 g/dL (14.0-18.0); Mean Corpuscular HGB CONC 30.1 g/dL (32.0-36.0); Mean Corpuscular Hemoglobin 26.8 pg (27.0-31.0); Mean Corpuscular Volume 88.9 fl (78.0-98.0); RBC Distribution Width 16.4 % (11.5-14.5); Red Blood Cell (RBC) Count 4.99 mill/uL (4.70-6.10)
[2022-06-23] MEDS: Famotidine/PF 20 mg/2ml Vial SLOW IVP SCH (08:26)
[2022-06-23] MEDS: Pantoprazole 40 MG VIAL IVP SCH (08:26)
[2022-06-23] MEDS: Heparin 5,000 UNITS/ML VIAL SC SCH ×2 (08:27→16:20)
[2022-06-23] MEDS ORDERED: Furosemide 40 MG TAB PO SCH (09:00)
[2022-06-23 09:43] LABS: #Eosinphils 0.2 thou/uL (0.0-0.7); #Lymphocytes 1.1 thou/uL (1.20-3.40); #Monocytes 0.3 thou/uL (0.11-0.59); #Neutrophils 1.8 thou/uL (1.40-6.50); %Basophils 0.5 % (0.0-1.0); %Eosinophils 5.5 % (0.0-10.0); %Lymphocytes 33.1 % (21.0-51.0); %Neutrophils 51.9 % (42.0-75.0); Mean Platelet Volume 10.7 fL (7.4-10.4); Platelet Count 90 10x3/uL (130-400); Platelet Morphology Comment Appears Decreased; White Blood Cell (WBC) Count 3.4 10x3/uL (4.8-10.8)
[2022-06-23] MEDS ORDERED: Transdermal Patch Removal TOP SCH (10:00)
[2022-06-23 15:55] VITALS: BP 142/68; TEMP 97.1
== END 2022-06-23 15:44 | disposition home or self-care (01) | DRG 389 ==
LOC: ERS 12:58 → T4-B 17:40
PROVIDERS: ADMIT Internal Medicine Nephrology; ATTEND Internal Medicine
PROC: 0D9770Z Drainage of Stomach, Pylorus with Drainage Device, Via Natural or Artificial Opening (ICD-10-PCS; principal; 2022-06-20)
DX: K56.50 Intestinal adhesions [bands], unspecified as to partial versus complete obstruction (principal); E87.1 Hypo-osmolality and hyponatremia; I50.32 Chronic diastolic (congestive) heart failure; N17.9 Acute kidney failure, unspecified; I48.91 Unspecified atrial fibrillation; K52.89 Other specified noninfective gastroenteritis and colitis; E16.2 Hypoglycemia, unspecified; I87.2 Venous insufficiency (chronic) (peripheral); K56.7 Ileus, unspecified; N18.2 Chronic kidney disease, stage 2 (mild); Z79.899 Other long term (current) drug therapy
CPT/HCPCS: 36415; 74018; 74178; 74250; 80048; 80053; 81001; 83605; 83690; 83735; 84100; 85025; 86850; 86900; 86901; 94760; 96374; 96375; C9113; J1644; J2270; J2272; J2405; J2543; J3490; J7030; J7050; Q9963; S0028

== ENCOUNTER 2023-04-12 15:59 | Inpatient (IN) | payer MEDICARE ==
[~2023-04-12 15:59] MED LIST changes: +Iopamidol-370 76% 500 ML MDV (1 ML CHARGE) ONE; -MD-Gastroview 120 ML BOT ONE
[2023-04-12] MEDS ORDERED: Acetaminophen 500 MG TAB ONE (16:28)
[2023-04-12] MEDS ORDERED: Sodium Chloride 0.9% 0 ML ONE (16:28)
[2023-04-12] MEDS ORDERED: Cefepime 2 GM VIAL ONE ×2 (16:28→17:10)
[2023-04-12] MEDS ORDERED: Sodium Chloride 0.9% 100 ML ONE ×2 (16:29→17:10)
[2023-04-12 16:43] LABS: Bacteria/HPF 2+ HPF (None Seen); Bilirubin Negative (Negative); Blood, Urine 3+ (Negative); CAUTI Indications for Culture Dysuria,urgency,freq; Clarity Turbid (Clear); Glucose, Urine (Dipstick) Normal (Negative); Ketone, Urine Negative (Negative); Leukocyte 500 Leu/uL (Negative); Nitrite Negative (Negative); Protein, Urine (Dipstick) 100 mg/dL (Neg-Trace); RBC/HPF Greater than 50 HPF (0-3); Specific Gravity, Urine 1.016 (1.002-1.036); Squamous Epithelial None Seen HPF (0-3); Urobilinogen Normal mg/dL (Less than 2); WBC/HPF Greater than 50 HPF (0-3)
[2023-04-12 16:45] LABS: Urine Culture Reflex Yes Yes
[2023-04-12 17:02] LABS: #Eosinphils 0.1 thou/uL (0.0-0.7); #Monocytes 0.4 thou/uL (0.11-0.59); #Neutrophils 3.4 thou/uL (1.40-6.50); %Basophils 0.7 % (0.0-1.0); %Eosinophils 2.1 % (0.0-10.0); %Lymphocytes 7.8 % (21.0-51.0); %Monocytes 8.7 % (0.0-10.0); %Neutrophils 80.5 % (42.0-75.0); Hematocrit 42.3 % (42.0-52.0); Hemoglobin 13.9 g/dL (14.0-18.0); Mean Corpuscular HGB CONC 32.9 g/dL (32.0-36.0); Mean Corpuscular Hemoglobin 26.7 pg (27.0-31.0); Mean Corpuscular Volume 81.2 fl (78.0-98.0); RBC Distribution Width 18.5 % (11.5-14.5); Red Blood Cell (RBC) Count 5.21 mill/uL (4.70-6.10); White Blood Cell (WBC) Count 4.3 10x3/uL (4.8-10.8)
[2023-04-12] MEDS ORDERED: Vancomycin 1 GM/200 ML (FROZEN) BAG ONE (17:11)
[2023-04-12 17:14] LABS: Platelet Count 112 10x3/uL (130-400)
[2023-04-12 17:15] LABS: INR-International Normal Ratio 1.3; Prothrombin Time 16.4 sec (12.0-14.7)
[2023-04-12 17:27] LABS: ALT (SGPT) 20 U/L (8-55); AST (SGOT) 36 U/L (5-34); Albumin 3.3 g/dL (3.4-4.8); Alkaline Phosphatase 253 U/L (40-110); Anion Gap 12 mmol/L (10-20); BUN (Urea Nitrogen) 36 mg/dL (8.4-25.7); Bilirubin, Total 2.4 mg/dL (0.2-1.2); CK (CPK) 66 U/L (30-200); Calc. Creatinine Clearance 0 mL/min (70-130); Calcium 9.2 mg/dL (7.8-10.44); Carbon Dioxide 27 mmol/L (23-31); Chloride 92 mmol/L (98-107); Estimated GFR 49; Glucose 132 mg/dL (83-110); Lipase 18 U/L (8-78); Potassium 4.1 mmol/L (3.5-5.1); Protein, Total 8.3 g/dL (5.8-8.1); Sodium 127 mmol/L (136-145)
[2023-04-12 17:31] LABS: Troponin I 0.099 ng/mL (< 0.028)
[2023-04-12] MEDS ORDERED: Ondansetron PF 4 MG/2 ML Vial IVP PRN ×2 (19:29→19:30)
[2023-04-12] MEDS ORDERED: Acetaminophen 650 MG Suppository PR PRN (19:29)
[2023-04-12] MEDS ORDERED: Ondansetron ODT 4 MG TAB PO PRN (19:29)
[2023-04-12] MEDS ORDERED: Acetaminophen 325 MG TAB PO PRN (19:30)
[2023-04-12] MEDS ORDERED: Ondansetron ODT 4 MG TAB SL PRN (19:30)
[2023-04-12] MEDS ORDERED: Furosemide 40 MG (4 mL) VIAL SLOW IVP SCH (20:45)
[2023-04-12 21:10] LABS: Troponin I 0.126 ng/mL (< 0.028)
[2023-04-12] MEDS ORDERED: Furosemide 40 MG (4 mL) VIAL ONE (21:13)
[2023-04-12 21:46] VITALS: BMI 22.0
[2023-04-13 01:12] LABS: Troponin I 0.103 ng/mL (< 0.028)
[2023-04-13] MEDS ORDERED: Vancomycin (BATCH) 1.25 GM in Premix 1 BAG IVPB SCH (05:00)
[2023-04-13 05:17] LABS: #Basophils 0.1 thou/uL (0.0-0.2); #Eosinphils 0.1 thou/uL (0.0-0.7); #Monocytes 0.5 thou/uL (0.11-0.59); #Neutrophils 3.1 thou/uL (1.40-6.50); %Basophils 1.2 % (0.0-1.0); %Lymphocytes 10.9 % (21.0-51.0); %Monocytes 12.2 % (0.0-10.0); %Neutrophils 72.5 % (42.0-75.0); Hematocrit 41.9 % (42.0-52.0); Hemoglobin 13.6 g/dL (14.0-18.0); Mean Corpuscular HGB CONC 32.5 g/dL (32.0-36.0); Mean Corpuscular Hemoglobin 26.2 pg (27.0-31.0); Mean Corpuscular Volume 80.6 fl (78.0-98.0); Mean Platelet Volume 10.6 fL (7.4-10.4); Platelet Count 111 10x3/uL (130-400); RBC Distribution Width 18.6 % (11.5-14.5); White Blood Cell (WBC) Count 4.3 10x3/uL (4.8-10.8)
[2023-04-13] MEDS ORDERED: Acetaminophen 325 MG TAB ONE ×2 (05:27→11:31)
[2023-04-13] MEDS ORDERED: Cefepime 2 GM VIAL ONE (05:27)
[2023-04-13] MEDS ORDERED: Sodium Chloride 0.9% 100 ML ONE (05:28)
[2023-04-13] MEDS: Acetaminophen 325 MG TAB PO PRN ×3 (05:30→16:00)
[2023-04-13] MEDS: Cefepime 2 GM in Sodium Chloride 0.9% 100 ML IVPB SCH ×2 (05:30→16:03)
[2023-04-13 05:39] LABS: Anion Gap 12 mmol/L (10-20); BUN (Urea Nitrogen) 31 mg/dL (8.4-25.7); Calc. Creatinine Clearance 39 mL/min (70-130); Calcium 8.6 mg/dL (7.8-10.44); Carbon Dioxide 30 mmol/L (23-31); Chloride 92 mmol/L (98-107); Estimated GFR 52; Glucose 110 mg/dL (83-110); Potassium 3.7 mmol/L (3.5-5.1); Sodium 130 mmol/L (136-145)
[2023-04-13] MEDS ORDERED: Furosemide 40 MG (4 mL) VIAL ONE ×2 (09:36→10:25)
[2023-04-13] MEDS: Furosemide 40 MG (4 mL) VIAL SLOW IVP SCH (09:41)
[2023-04-13] MEDS ORDERED: Furosemide 40 MG (4 mL) VIAL SLOW IVP SCH (10:15)
[2023-04-13] MEDS ORDERED: Aspirin 81 mg Enteric Coated Tablet PO SCH (12:00)
[2023-04-13] MEDS ORDERED: Aspirin Chewable 81 MG TAB ONE (12:13)
[2023-04-13] MEDS ORDERED: Aspirin 81 mg Enteric Coated Tablet ONE (12:22)
[2023-04-13 12:33] LABS: ALT (SGPT) 19 U/L (8-55); AST (SGOT) 28 U/L (5-34); Alkaline Phosphatase 223 U/L (40-110); Bilirubin, Total 1.9 mg/dL (0.2-1.2); Protein, Total 7.7 g/dL (5.8-8.1)
[2023-04-13] MEDS: Vancomycin 1 GM in Premix 1 BAG IVPB SCH (16:11)
[2023-04-13] MEDS ORDERED: Furosemide 100 MG (10 mL) VIAL SLOW IVP SCH (16:30)
[2023-04-14] MEDS: Furosemide 100 MG (10 mL) VIAL SLOW IVP SCH ×2 (05:09→12:55)
[2023-04-14] MEDS: Cefepime 2 GM in Sodium Chloride 0.9% 100 ML IVPB SCH ×2 (05:09→17:01)
[2023-04-14 08:32] LABS: #Basophils 0.1 thou/uL (0.0-0.2); #Eosinphils 0.3 thou/uL (0.0-0.7); #Monocytes 0.5 thou/uL (0.11-0.59); %Basophils 1.4 % (0.0-1.0); %Eosinophils 9.2 % (0.0-10.0); %Lymphocytes 16.1 % (21.0-51.0); %Monocytes 14.7 % (0.0-10.0); %Neutrophils 58.3 % (42.0-75.0); Hematocrit 41.7 % (42.0-52.0); Hemoglobin 13.4 g/dL (14.0-18.0); Mean Corpuscular HGB CONC 32.1 g/dL (32.0-36.0); Mean Corpuscular Hemoglobin 26.2 pg (27.0-31.0); Mean Corpuscular Volume 81.6 fl (78.0-98.0); Mean Platelet Volume 10.1 fL (7.4-10.4); RBC Distribution Width 18.1 % (11.5-14.5); Red Blood Cell (RBC) Count 5.11 mill/uL (4.70-6.10); White Blood Cell (WBC) Count 3.5 10x3/uL (4.8-10.8)
[2023-04-14 08:34] LABS: Platelet Count 105 10x3/uL (130-400)
[2023-04-14 08:46] LABS: Anion Gap 12 mmol/L (10-20); BUN (Urea Nitrogen) 26 mg/dL (8.4-25.7); Calc. Creatinine Clearance 44 mL/min (70-130); Calcium 8.3 mg/dL (7.8-10.44); Carbon Dioxide 30 mmol/L (23-31); Chloride 94 mmol/L (98-107); Estimated GFR 61; Glucose 91 mg/dL (83-110); Potassium 3.3 mmol/L (3.5-5.1); Sodium 133 mmol/L (136-145)
[2023-04-14] MEDS ORDERED: Aspirin 81 mg Enteric Coated Tablet PO SCH (09:00)
[2023-04-14] MEDS: Furosemide 40 MG (4 mL) VIAL SLOW IVP SCH (10:11)
[2023-04-14] MEDS ORDERED: Aspirin Chewable 81 MG TAB PO SCH (10:30)
[2023-04-14] MEDS ORDERED: Potassium Chloride 20 MEQ TAB PO SCH (12:00)
[2023-04-14] MEDS: Acetaminophen 325 MG TAB PO PRN (12:53)
[2023-04-14] MEDS ORDERED: Potassium Chloride 20 MEQ in Premix 1 BAG IVPB SCH (14:15)
[2023-04-14] MEDS: Vancomycin 1 GM in Premix 1 BAG IVPB SCH (16:59)
[2023-04-14] MEDS: Potassium Chloride 40 MEQ in Sodium Chloride 0.9% 250 ML 250 ML IVPB SCH (18:00)
[2023-04-15] MEDS: Acetaminophen 325 MG TAB PO PRN ×2 (00:59→12:38)
[2023-04-15] MEDS: Cefepime 2 GM in Sodium Chloride 0.9% 100 ML IVPB SCH ×2 (04:14→18:19)
[2023-04-15] MEDS: Potassium Chloride 40 MEQ in Sodium Chloride 0.9% 250 ML 250 ML IVPB SCH (04:16)
[2023-04-15] MEDS: Furosemide 40 MG (4 mL) VIAL SLOW IVP SCH ×2 (05:28→16:07)
[2023-04-15] MEDS ORDERED: Potassium Chloride 20 MEQ in Premix 1 BAG IVPB SCH (06:00)
[2023-04-15 08:19] LABS: #Basophils 0.1 thou/uL (0.0-0.2); #Eosinphils 0.2 thou/uL (0.0-0.7); #Monocytes 0.5 thou/uL (0.11-0.59); #Neutrophils 2.2 thou/uL (1.40-6.50); %Basophils 1.4 % (0.0-1.0); %Eosinophils 5.4 % (0.0-10.0); %Monocytes 13.3 % (0.0-10.0); %Neutrophils 60.4 % (42.0-75.0); Hematocrit 42.9 % (42.0-52.0); Hemoglobin 13.9 g/dL (14.0-18.0); Mean Corpuscular HGB CONC 32.4 g/dL (32.0-36.0); Mean Corpuscular Hemoglobin 26.6 pg (27.0-31.0); Mean Platelet Volume 10.3 fL (7.4-10.4); Platelet Count 121 10x3/uL (130-400); RBC Distribution Width 18.6 % (11.5-14.5); Red Blood Cell (RBC) Count 5.23 mill/uL (4.70-6.10); White Blood Cell (WBC) Count 3.7 10x3/uL (4.8-10.8)
[2023-04-15 08:45] LABS: Anion Gap 10 mmol/L (10-20); BUN (Urea Nitrogen) 26 mg/dL (8.4-25.7); Calc. Creatinine Clearance 43 mL/min (70-130); Calcium 8.6 mg/dL (7.8-10.44); Carbon Dioxide 32 mmol/L (23-31); Chloride 94 mmol/L (98-107); Estimated GFR 60; Glucose 141 mg/dL (83-110); Potassium 4.4 mmol/L (3.5-5.1); Sodium 132 mmol/L (136-145)
[2023-04-15] MEDS: Aspirin Chewable 81 MG TAB PO SCH (09:16)
[2023-04-15] MEDS ORDERED: Lidocaine 4% Patch TD SCH (12:30)
[2023-04-15] MEDS ORDERED: hydrOXYzine 10 MG TAB PO PRN (15:52)
[2023-04-15] MEDS ORDERED: Vancomycin 1 GM/200 ML (FROZEN) BAG ONE (18:13)
[2023-04-15] MEDS: Vancomycin 1 GM in Premix 1 BAG IVPB SCH (18:20)
[2023-04-16 06:06] LABS: #Basophils 0.1 thou/uL (0.0-0.2); #Eosinphils 0.3 thou/uL (0.0-0.7); #Monocytes 0.5 thou/uL (0.11-0.59); #Neutrophils 2.2 thou/uL (1.40-6.50); %Basophils 1.3 % (0.0-1.0); %Eosinophils 7.1 % (0.0-10.0); %Lymphocytes 19.2 % (21.0-51.0); %Monocytes 13.7 % (0.0-10.0); %Neutrophils 58.4 % (42.0-75.0); Hemoglobin 13.6 g/dL (14.0-18.0); Mean Corpuscular HGB CONC 31.6 g/dL (32.0-36.0); Mean Corpuscular Volume 82.1 fl (78.0-98.0); Mean Platelet Volume 10.4 fL (7.4-10.4); Platelet Count 115 10x3/uL (130-400); RBC Distribution Width 18.6 % (11.5-14.5); Red Blood Cell (RBC) Count 5.24 mill/uL (4.70-6.10); White Blood Cell (WBC) Count 3.8 10x3/uL (4.8-10.8)
[2023-04-16 06:27] LABS: Anion Gap 10 mmol/L (10-20); BUN (Urea Nitrogen) 22 mg/dL (8.4-25.7); Calc. Creatinine Clearance 44 mL/min (70-130); Calcium 8.7 mg/dL (7.8-10.44); Carbon Dioxide 31 mmol/L (23-31); Chloride 94 mmol/L (98-107); Estimated GFR 61; Glucose 188 mg/dL (83-110); Sodium 131 mmol/L (136-145)
[2023-04-16] MEDS ORDERED: Lidocaine 4% Patch TD SCH (09:00)
[2023-04-16] MEDS ORDERED: Furosemide 40 MG (4 mL) VIAL SLOW IVP SCH (09:00)
[2023-04-16] MEDS: Aspirin Chewable 81 MG TAB PO SCH (10:53)
[2023-04-16 12:26] VITALS: BP 125/63; TEMP 97.4
[2023-04-16] MEDS ORDERED: Vancomycin 1 GM in Premix 1 BAG IVPB SCH (16:30)
[2023-04-16] MEDS ORDERED: Transdermal Patch Removal TOP SCH (21:00)
== END 2023-04-16 16:19 | disposition home health service (06) | DRG 698 ==
LOC: ERS 15:59 → ERHOLD 19:22 → 2SE 04-13 13:46
PROVIDERS: ADMIT Student in an Organized Health Care Education/Training Program; ATTEND Internal Medicine
DX: T83.511A Infection and inflammatory reaction due to indwelling urethral catheter, initial encounter (principal); I21.A1 Myocardial infarction type 2; J96.01 Acute respiratory failure with hypoxia; I50.33 Acute on chronic diastolic (congestive) heart failure; L97.919 Non-pressure chronic ulcer of unspecified part of right lower leg with unspecified severity; L03.115 Cellulitis of right lower limb; E87.1 Hypo-osmolality and hyponatremia; N17.9 Acute kidney failure, unspecified; N39.0 Urinary tract infection, site not specified; L30.9 Dermatitis, unspecified; Y83.8 Other surgical procedures as the cause of abnormal reaction of the patient, or of later complication, without mention of misadventure at the time of the procedure; N18.9 Chronic kidney disease, unspecified; I35.0 Nonrheumatic aortic (valve) stenosis; I48.0 Paroxysmal atrial fibrillation; E87.6 Hypokalemia; F41.9 Anxiety disorder, unspecified; Z79.899 Other long term (current) drug therapy; Z90.49 Acquired absence of other specified parts of digestive tract; Z98.890 Other specified postprocedural states
CPT/HCPCS: 36415; 36416; 71045; 74177; 80048; 80053; 80076; 81001; 82550; 83605; 83690; 83880; 84443; 84484; 85025; 85610; 85730; 87040; 87077; 87086; 87149; 87186; 93005; 93306; 94760; 97139; J0692; J1940; J3370-JW; J3480; J3490; J7050; Q9967